=== PATIENT | male | born 1955 | race Caucasian/White ===

== ENCOUNTER 2018-02-23 21:13 | Emergency (ER) | payer BC ==
[2018-02-23 21:28] VITALS: BP 135/76
--- NOTE | 2018-02-23 22:25 | UC ---
General HPI - HPI Summary HPI Summary: c/o finding a tick attached to his left arm during a shower today. He took a shower 48 hr ago and he did not notice the tick there then. Had it removed and brought tick in a plastic bag - History of Current Complaint Chief Complaint: TRAVISkin Stated Complaint: TICK BITE Time Seen by Provider: 02/23/18 21:39 Hx Obtained From: Patient Onset/Duration: Sudden Onset, Lasting Hours Onset Severity: Mild Current Severity: Mild Pain Intensity: 0 - Allergy/Home Medications Allergies/Adverse Reactions: Allergies Allergy/AdvReac Type Severity Reaction Status Date / Time No Known Allergies Allergy Verified 02/23/18 21:28 PMH/Surg Hx/FS Hx/Imm Hx Previously Healthy: Yes Endocrine History: Dyslipidemia Psychological History: Depression - Surgical History Surgical History: Yes Surgery Procedure, Year, and Place: COLON TUMOR REMOVAL, APPENDECTOMY - Family History Known Family History: Positive: None - Social History Alcohol Use: None Substance Use Type: None Smoking Status (MU): Never Smoked Tobacco - Immunization History Most Recent Tetanus Shot: utd Review of Systems Constitutional: Negative All Other Systems Reviewed And Are Negative: Yes Physical Exam Triage Information Reviewed: Yes Appearance: Well-Appearing, No Pain Distress, Well-Nourished Vital Signs: Initial Vital Signs Temp 97.0 F 02/23/18 21:23 Pulse 74 02/23/18 21:23 Resp 18 02/23/18 21:23 BP 135/76 02/23/18 21:23 Pulse Ox 95 02/23/18 21:23 Vital Signs Reviewed: Yes Eyes: Positive: Conjunctiva Clear ENT: Positive: Hearing grossly normal Neck: Positive: Nontender Respiratory: Positive: Chest non-tender Cardiovascular: Positive: Pulses Normal, Brisk Capillary Refill Skin Exam: Other - small orifice on left forearm, no rash, no discharge, no erythema Course/Dx - Course Course Of Treatment: tick brought in by patient, female deer tick, no engorgement, insect has head attached. Tick was found within 48 hr, no treatment indicated at this time. Discussed with patient. May Monitor for erythema migrans - Differential Dx - Multi-Symptom Provider Diagnoses: tick bite Discharge - Sign-Out/Discharge Documenting (check all that apply): Discharge/Admit/Transfer - Discharge Plan Condition: Good Disposition: HOME Patient Education Materials: Tick Bite (ED) Referrals: Georgia Morrow MD [Primary Care Provider] - - Billing Disposition and Condition Condition: GOOD Disposition: Home
== END 2018-02-23 22:20 | disposition home or self-care (01) ==
LOC: UCEAST 21:13
DX: S40.862A Insect bite (nonvenomous) of left upper arm, initial encounter (principal); W57.XXXA Bitten or stung by nonvenomous insect and other nonvenomous arthropods, initial encounter; Y93.9 Activity, unspecified; Y92.9 Unspecified place or not applicable; E78.5 Hyperlipidemia, unspecified; F32.9 Major depressive disorder, single episode, unspecified
CPT/HCPCS: 99211; G0463